=== PATIENT | male | born 1995 | race Caucasian/White ===

== ENCOUNTER 2022-02-06 13:06 | Emergency (ER) | payer OTHER, SELFPAY ==
[2022-02-06 13:27] VITALS: BP 133/76; PULSE 71; RESP 16; TEMP 36.9; O2SAT 99
--- NOTE | 2022-02-06 14:05 | ED.GENADULT ---
HPI - General Adult General Chief complaint: Neck Pain/Injury Stated complaint: shoulder/neck pain Time Seen by Provider: 02/06/22 14:05 Source: patient, RN notes reviewed and old records reviewed Mode of arrival: ambulatory Limitations: no limitations History of Present Illness HPI narrative: 26-year-old male presents to [facility] with complaints of pain to his right anterior and posterior shoulder extending to right neck after lifting a box today at work. Patient states that box weighed between 40-50 lbs. Patient reports that he has no tingling or numbness to his right arm or hand, has full ROM of his neck. Patient states that pain is at his anterior and posterior right shoulder with some radiation to neck now with movement.Patient has not taken any OTC medication for his discomfort or applied any ice. MD complaint: right anterior posteior shoulder with radiation to right neck Onset (ago): hour(s) (today at work) Severity scale (1-10): 4 Treatments prior to arrival: none Related Data Allergies Allergy/AdvReac Type Severity Reaction Status Date / Time No Known Allergies Allergy Verified 02/08/22 10:19 Review of Systems Review of Systems: CONSTITUTIONAL: Denies fever, chills, or sweats. EYES: Denies visual changes, redness, or discharge. ENT: Denies rhinorrhea, congestion, sore throat, or otalgia. CARDIOVASCULAR: Denies chest pain, palpitations, or edema. RESPIRATORY: Denies cough or dyspnea. GASTROINTESTINAL: Denies abdominal pain, nausea, vomiting, or diarrhea. GENITOURINARY: Denies dysuria or hematuria. SKIN: Denies rash or itching. MUSCULOSKELETAL: Denies back pain,positive for pain to right anterior and posterior shoulder radiating to neck, or myalgia. NEUROLOGIC: Denies headache, numbness, or weakness. PSYCHIATRIC:Positive for history of anxiety or depression. All systems reviewed & are unremarkable except as noted in HPI and below PMFSH Past Medical History Medical History (Updated 02/09/22 @ 14:26 by Brianna Clayton NP) Anxiety Depression Pilonidal cyst surgical intervention Family History Family History Mother Cervical cancer Grandparent Acute myocardial infarction Social History Social History (Updated 02/08/22 @ 10:24 by Smitha Spain) Social History: Single Smoking packs per day: 0.5 Smoking cigarettes per day: 10.0 Years smoked: 7 Smoking pack-years: 3.50 Smoking status: Current every day smoker Tobacco type: cigarettes Second hand tobacco smoke exposure: Yes Alcohol intake: never Substance use: never Substance use type: does not use Living arrangements: with family Occupation/Education: occupation 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 There is no relevant family history pertinent to the presenting complaint Exam Narrative: GENERAL: Well-appearing, well-nourished, and in no acute distress. HEAD: Normocephalic, atraumatic. EYES: PERRLA and EOMI. ENT: Nares clear, no rhinorrhea or epistaxis. Mucous membranes moist.TM's normal with good light reflex, throat pink with no lesions or swelling NECK: Supple.no lymphadenopathy CHEST: Clear to auscultation. No respiratory distress.SAO2 100% on room air HEART: Regular rate and rhythm. No murmur heard. Normal peripheral pulses. ABDOMEN: Soft, nontender, nondistended, normal active bowel sounds. EXTREMITIES: Normal range of motion. No edema.Patient is able to move right arm with full ROM but discomfort stated to anterior and posterior shoulder region with burning type of pain, reports radiation to right side of neck at times.strong pulses to right arm, nail beds paulino briskly, denies any tingling or numbness to right arm or hand
[2022-02-06 14:10] VITALS: BP 110/74; PULSE 102; RESP 16; TEMP 36.9; O2SAT 100
== END 2022-02-06 14:33 | disposition home or self-care (01) ==
PROVIDERS: Emergency Provider Registered Nurse
DX: S46.811A Strain of other muscles, fascia and tendons at shoulder and upper arm level, right arm, initial encounter (principal); M25.511 Pain in right shoulder; M54.2 Cervicalgia; Z87.891 Personal history of nicotine dependence; T14.90XA Injury, unspecified, initial encounter
CPT/HCPCS: 99213; G0463

== ENCOUNTER 2022-06-21 08:40 | Outpatient (CLI) | payer OTHER, SELFPAY ==
--- NOTE | ~2022-06-21 | US_ITS ---
EXAMINATION: US abdomen limited DATE: 06/21/2022 09:13 INDICATION: Epigastric abdominal pain TECHNIQUE: Multiple grayscale and Doppler ultrasound images of the abdomen were obtained. COMPARISON: None available FINDINGS: The head and body of the pancreas are normal. The pancreatic tail is obscured by bowel gas. The liver is normal with normal echogenicity and echotexture. No surface nodularity. Normal hepatope roel flow in the main portal vein. The gallbladder is normal with no abnormal wall thickening, pericho lecystic fluid or stones. The normal common bile duct measures 2 mm. There was no sonographic Siddiqui sign. IMPRESSION: 1. No sonographic correlate for the patient's symptoms. Reviewed, dictated and finalized at location B. SPORTATION SERVICES REPRESENTATIVE
== END 2022-06-21 08:41 | disposition home or self-care (01) ==
PROVIDERS: PCP Family Medicine; Visit Provider Physician Assistant
DX: R10.13 Epigastric pain (principal)
CPT/HCPCS: 76705

== ENCOUNTER 2022-07-06 08:00 | Outpatient (NON) | payer OTHER, SELFPAY | END 2022-07-06 08:01 | disposition home or self-care (01) | LOC: ANHLAB 07-07 07:29 | PROVIDERS: PCP Family Medicine; Visit Provider Internal Medicine Gastroenterology | DX: K29.50 Unspecified chronic gastritis without bleeding (principal) | CPT/HCPCS: 88305 ==

== ENCOUNTER 2022-07-06 11:21 | Day surgery (SDC) | payer OTHER, SELFPAY ==
[2022-07-06 12:51] VITALS: BP 126/66; PULSE 73; RESP 18; TEMP 37.1; O2SAT 99
[2022-07-06] MEDS: LACTATED RINGERS 1,000 ML 150 ML IV CONT (12:57)
--- NOTE | 2022-07-06 13:03 | WPDANESEPPF ---
Anes - Initial Pre Proc Eval Procedure: Operation Date: 07/06/22 14:00 Proposed Procedures p Esophagogastroduodenoscopy - Alfred Vazquez MD Date/Time: 07/06/22 13:03 Surgeon: Alfred Vazquez MD Pre Op Diagnosis: Epigastric Pain Patient Data Age: 26 Gender: M Height: 1.7 m Weight: 87.8 kg Last Vital Signs Temp 37.1 C 07/06/22 12:51 Pulse 73 07/06/22 12:51 Resp 18 07/06/22 12:51 BP 126/66 07/06/22 12:51 Pulse Ox 99 07/06/22 12:51 O2 Del Method Room Air 07/06/22 12:51 Allergies Allergy/AdvReac Type Severity Reaction Status Date / Time No Known Allergies Allergy Verified 07/06/22 12:49 Home Medications Medication Instructions Recorded Confirmed Type buspirone 5 mg tablet 5 mg PO BID PRN anxiety #60 tabs 07/05/22 07/06/22 Rx omeprazole 40 mg capsule,delayed 40 mg PO DAILY #30 caps 07/05/22 07/06/22 Rx release sertraline 25 mg tablet 25 mg PO DAILY #30 tabs 07/05/22 07/06/22 Rx Patient hx anesthesia problems: none Family hx anesthesia problems: none Results Review: All pre-operative results and documents have been reviewed as part of the pre-operative evaluation. [facility] Past Medical History Medical History Anxiety Depression Pilonidal cyst surgical intervention Family History Family History Mother Cervical cancer Grandparent Acute myocardial infarction Social History Social History Social History: Single Smoking packs per day: 0.5 Smoking cigarettes per day: 10.0 Years smoked: 7 Smoking pack-years: 3.50 Smoking status: Former smoker Tobacco type: cigarettes Second hand tobacco smoke exposure: Yes Smoking end date: 04/15/22 Alcohol intake: never Substance use: never Substance use type: does not use Living arrangements: with family Occupation/Education: occupation 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 Gender identity (if verbalized by the patient): Male Sexual Orientation (if Verbalized by the Patient): Straight or Heterosexual Spiritual care concerns: No Anes - Eval Final PreProcedure Day of Procedure 07/06/22 13:03 Patient weight: overweight Heart: regular rate and rhythm Lungs: clear to auscultation Airway: Mallampati scale class II Last oral intake: >/= 8 hours ASA classification: II Emergent: no Anesthetic plan: proceed Anesthesia type and monitoring: general GIVS and standard monitoring Results Review: All pre-operative results and documents have been reviewed as part of the pre-operative evaluation. Informed Consent: The patient's anesthetic plan and its attendant risks and benefits were discussed with the patient/family/POA. Questions were solicited and answers provided to the satisfaction of the patient/family/POA.
--- NOTE | 2022-07-06 13:42 | PM.HPGS ---
History of Present Illness History of Present Illness Consent: Risks, benefits, and alternatives have been discussed and questions answered. Patient agrees to proceed with procedure. Chief complaint: Epigastric Pain Narrative: Dwayne Ren is a 26 year old male here for first EGD, had epigastric pain and found to have positive h pylori breath test. RUQ US and cbc, cmp, amylase, lipase unremarkable. Sx have resolved after amoxicillin, clarithromycin, PPI triple therapy x 2 weeks. Still using ppi and doing well. Review of Systems Constitutional: Constitutional: Denies headache(s) and Denies weakness Eyes: Eyes: Denies blurry vision ENT: Reports Normal hearing present, Denies headache(s) and Denies neck pain Cardiovascular: Cardiovascular: Denies chest pain and Denies dyspnea Respiratory: Respiratory: Denies dyspnea Gastrointestinal: Gastrointestinal: Reports no additional gastrointestinal complaints Genitourinary: Genitourinary: Denies dysuria Musculoskeletal: Musculoskeletal: Denies neck pain Integumentary/Breasts: Skin/Breast: Denies dry skin Neurologic: Reports Normal hearing present, Denies headache(s) and Denies weakness Psychiatric: Psychiatric: Denies anxiety Endocrine: Endocrine: Denies change in body appearance Hematologic/Lymphatic: Hematologic/Lymphatic: Denies easy bleeding Allergic/Immunologic: Allergic/Immunologic: Denies urticaria PMFSH Past Medical History Medical History (Updated 07/06/22 @ 13:43 by Alfred Vazquez MD) Anxiety Depression Epigastric pain Pilonidal cyst surgical intervention Positive Helicobacter pylori test Family History Family History Mother Cervical cancer Grandparent Acute myocardial infarction Social History Social History Social History: Single Smoking packs per day: 0.5 Smoking cigarettes per day: 10.0 Years smoked: 7 Smoking pack-years: 3.50 Smoking status: Former smoker Tobacco type: cigarettes Second hand tobacco smoke exposure: Yes Smoking end date: 04/15/22 Alcohol intake: never Substance use: never Substance use type: does not use Living arrangements: with family Occupation/Education: occupation 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 Gender identity (if verbalized by the patient): Male Sexual Orientation (if Verbalized by the Patient): Straight or Heterosexual Spiritual care concerns: No Meds Home Medications and Allergies Home Medications Medication Instructions Recorded Confirmed Type buspirone 5 mg tablet 5 mg PO BID PRN anxiety #60 tabs 07/05/22 07/06/22 Rx omeprazole 40 mg capsule,delayed 40 mg PO DAILY #30 caps 07/05/22 07/06/22 Rx release sertraline 25 mg tablet 25 mg PO DAILY #30 tabs 07/05/22 07/06/22 Rx Allergies Allergy/AdvReac Type Severity Reaction Status Date / Time No Known Allergies Allergy Verified 07/06/22 12:49 Vital Signs Vital Signs - 24 hr 07/06/22 12:51 Temperature 98.7 F Pulse Rate 73 Respiratory Rate 18 Blood Pressure 126/66 Pulse Oximetry 99 Oxygen Delivery Room Air Exam Const: General: comfortable and no acute distress HENMT: Face/Nose/Sinus: Normal nares present Eyes: General: appearance normal, both eyes and all related structures Neck: Neck: no JVD Resp: Auscultation: clear to auscultation bilaterally Cardio: Rate: regular rate Rhythm: regular rhythm GI: Inspection: non-distended GI Palp: Yes Soft to palpation Skin: General skin exam: normal color Neuro: General: gait normal Speech: normal speech Extrem: General: normal to inspection Psych: Mental Status: mental status grossly normal Assessment and Plan Assessment and plan (1) Epigastric pain: Code(s): R10.13 - Epigastric pain Status: Acute Assessment and Plan: egd with bx (2) Positive Helicobacter pylori test:
[2022-07-06 14:00] VITALS: BP 101/63; PULSE 76; RESP 16; O2SAT 96
[2022-07-06 14:10] VITALS: BP 103/64; PULSE 63; RESP 16; O2SAT 100
--- NOTE | 2022-07-06 14:14 | WPDANESPN ---
Anes - Prog Note Post-Op Date/Time: 07/06/22 14:14 Cardiovascular status: normal Respiratory status: normal Airway patency: baseline Mental status: baseline Post-Op hydration status: normal Vital Signs: Last Vital Signs Temp 37.1 C 07/06/22 12:51 Pulse 76 07/06/22 14:00 Resp 16 07/06/22 14:00 BP 101/63 07/06/22 14:00 Pulse Ox 96 07/06/22 14:00 O2 Del Method Room Air 07/06/22 14:00 Pain Score (VAS): 0/10 I/O: Intake & Output 07/05/22 07/06/22 07/06/22 23:59 07:59 15:59 Intake Total 300 Balance 300 Patient Feedback: Patient satisfied with anesthetic care.
[2022-07-06 14:20] VITALS: BP 98/69; PULSE 78; RESP 16; O2SAT 99
== END 2022-07-06 14:45 | disposition home or self-care (01) ==
PROVIDERS: PCP Family Medicine; Visit Provider Internal Medicine Gastroenterology
PROC: 0DJ08ZZ Inspection of Upper Intestinal Tract, Via Natural or Artificial Opening Endoscopic (ICD-10-PCS; CPT 43235; principal; 2022-07-06 14:00)
DX: R10.13 Epigastric pain (principal)
CPT/HCPCS: 43239

== ENCOUNTER 2022-08-05 01:04 | Day surgery (SDC) | payer OTHER, SELFPAY ==
[2022-07-23 12:57] VITALS: BMI 30.2
--- NOTE | 2022-07-23 13:00 | PC.NURSE ---
Report to the Outpatient Waiting Room, entrance under the green pavilion located off [facility], at time 0730 on date 08/05/22. Planned Procedure Time: 0930. Time changes happen often and if your time is changed the preop area will call you the afternoon before. - You and your visitor will be asked to self-screen and do not enter if you have any COVID symptoms. - Only one visitor is requested with a max of two and NO children visitors are allowed at this time. - The patient visitor may be requested to leave or wait in car when not with patient due to distancing restrictions. - A mask is optional within the hospital at this time. Patients may have clear liquids (water, carbonated beverages, clear teas, apple juice) until 3 hours prior to surgery with a maximum of 20 ounces. - No food from midnight until time of surgery Take the following medications with a SIP of water the morning of surgery: SERTRALINE, BUSPIRONE IF NEEDED DO NOT STOP ANY OF YOUR OTHER PRESCRIPTION MEDICATIONS PRIOR TO SURGERY EXCEPT THE FOLLOWING Medications to discontinue per physician: N/A Date to take last dose: N/A Please no make-up, nail bulgarian, hairspray, perfume, deodorant, or body powder the day of surgery. No jewelry (including any body piercings) or valuables the day of surgery, leave them at home. Please take a shower or bath the night before, or the morning of, surgery with an antibacterial soap. Wear comfortable, loose fitting clothing. - Jewelry must be removed prior to entering the operating room. Rings and piercings that are not removed may be cut off. - The hospital will not accept responsibility for valuables. - Please leave all valuables, including medications, at home the day of surgery. If you are going home after surgery, a licensed wheat combine driver must drive you home. - NO public transportation without another adult if you receive anesthesia. - We recommend that an adult stay with you for 24 hours following discharge. - We also recommend that you do not drive, make important decision, drink alcoholic beverages, or take any drugs that were not prescribed by your health care provider for at least 24 hours after your discharge time. Follow any additional instructions given to you from your surgeon. If you or anyone in your household have experienced Covid symptoms in the past week, please notify your surgeon or the nurse liaison at the phone number below for possible testing. Telephone instructions given to PT - ALEX HYMAN and asked if any additional questions and then verbalized understanding. Patient advised to call surgeon office or pre surgery nurse liaison [phone] if any additional questions.
[2022-08-05] VITALS (11 sets, daily range): BP systolic 107–143; BP diastolic 62–89; PULSE 63–95; RESP 12–19; TEMP 36.3–36.7; O2SAT 96–100
[2022-08-05] MEDS: LACTATED RINGERS 1,000 ML 30 ML IV CONT ×2 (08:45→11:54)
--- NOTE | 2022-08-05 08:57 | WPDHPUPDATE1 ---
History and Physical Update Update Date/Time: 08/05/22 08:57 History and Physical has been reviewed, including an updated exam of the patient. There are NO changes in the patient's condition. Risks, benefits, and alternatives have been discussed and questions answered. Patient agrees to proceed with procedure.
--- NOTE | 2022-08-05 08:58 | W.PM.PROC2 ---
Procedure Note - Detailed Date of Procedure 08/05/22 Pre-op Diagnosis pilonidal disease Post-op Diagnosis Same Procedure Performed Excision pilonidal disease 14cm Surgeon José Miguel Benavides MD Anesthesia General Findings Extended from superior gluteal cleft with sinus tract to left of anus. No muscle involvement. Description of Procedure Preoperatively the risks, benefits, alternatives were discussed in extensive detail. I wanted them to be very realistic about the risks involved as well as expectations. They understand this can recur or have new areas. We may not be able to treat the entire condition. He understands risks of infection and open wounds. All questions were answered todayin great detail to their satisfaction today. Consent obtained. They would like proceed. Patient was taken to the operating room. Anesthesia provided by anesthesiology. Placed in a prone position and prepped and draped in a standard sterile fashion. Surgical time-out was taken. 1% lidocaine and 0.25% Marcaine with epinephrine was used anesthetize locally. I used a lacrimal probe to identify the sinus tract from superior gluteal cleft to left of anus. Fifteen blade used to excise around the area of concern this was completely removed. I copiously irrigated with saline solution. I closed in layers obliterating all space using 2-0 Vicryl followed by 3-0 Monocryl and 3-0 chromic. Dressings were placed. Patient was woken taken to the PACU without difficulty. All instrument sponge counts were correct at the end of the case. Estimated Blood Loss 15 Drains No Packing No Pathology Yes (Pilonidal disease) Complications No immediate complications Condition Stable Disposition PACU
[2022-08-05 09:11] LABS: Urine Cotinine POSITIVE
--- NOTE | 2022-08-05 09:15 | WPDANESEPPF ---
Anes - Initial Pre Proc Eval Procedure: Operation Date: 08/05/22 09:30 Proposed Procedures p Excision of Pilonidal Disease - José Miguel Benavides MD Date/Time: 08/05/22 09:15 Surgeon: José Miguel Benavides MD Pre Op Diagnosis: pilonidal disease Patient Data Age: 27 Gender: M Height: 1.7 m Weight: 87.55 kg Last Vital Signs Temp 36.7 C 08/05/22 08:45 Pulse 73 08/05/22 08:45 Resp 17 08/05/22 08:45 BP 122/69 08/05/22 08:45 Pulse Ox 98 08/05/22 08:45 O2 Del Method Room Air 08/05/22 08:45 Allergies Allergy/AdvReac Type Severity Reaction Status Date / Time No Known Allergies Allergy Verified 07/26/22 16:16 Home Medications Medication Instructions Recorded Confirmed Type buspirone 5 mg tablet 5 mg PO BID PRN anxiety #60 tabs 07/05/22 07/26/22 Rx omeprazole 40 mg capsule,delayed 40 mg PO DAILY #30 caps 07/05/22 07/26/22 Rx release sertraline 50 mg tablet 50 mg PO DAILY #30 tabs 07/26/22 07/26/22 Rx Laboratory Tests 08/05/22 08:48 Cotinine Positive Patient hx anesthesia problems: none Family hx anesthesia problems: none Results Review: All pre-operative results and documents have been reviewed as part of the pre-operative evaluation. [facility] Past Medical History Medical History Anxiety Depression Epigastric pain Pilonidal cyst surgical intervention Positive Helicobacter pylori test Family History Family History Mother Cervical cancer Grandparent Acute myocardial infarction Social History Social History Social History: Single Smoking packs per day: 0.5 Smoking cigarettes per day: 10.0 Years smoked: 7 Smoking pack-years: 3.50 Smoking status: Former smoker Tobacco type: cigarettes Second hand tobacco smoke exposure: Yes Smoking end date: 04/15/22 Alcohol intake: never Substance use: current Substance use type: marijuana Living arrangements: with family Occupation/Education: occupation 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 Gender identity (if verbalized by the patient): Male Sexual Orientation (if Verbalized by the Patient): Straight or Heterosexual Spiritual care concerns: No Anes - Eval Final PreProcedure Day of Procedure 08/05/22 09:15 Patient weight: obese Heart: regular rate and rhythm Lungs: clear to auscultation Airway: Mallampati scale class II Neurological: alert and oriented Last oral intake: >/= 8 hours ASA classification: III Emergent: no Anesthetic plan: proceed Anesthesia type and monitoring: general ETT and standard monitoring Results Review: All pre-operative results and documents have been reviewed as part of the pre-operative evaluation. Informed Consent: The patient's anesthetic plan and its attendant risks and benefits were discussed with the patient/family/POA. Questions were solicited and answers provided to the satisfaction of the patient/family/POA.
[2022-08-05] MEDS: ceFAZolin 2 GM/D5W 50 ML 2 GM/50 ML BAG IVPB (09:19)
[2022-08-05] MEDS: BUPivacaine HCL 0.25% PF 30 ML VIAL INFILTRATE (09:50)
[2022-08-05] MEDS: LIDO 1%/EPINEPHRINE 1:100,000 20 ML VIAL INFILTRATE (09:51)
[2022-08-05] MEDS: oxyCODONE HCL (*CRX) 5 MG TAB IR PO (11:47)
[2022-08-05] MEDS: fentaNYL CITRATE INJ (*CRX) 100 MCG/2 ML VIAL 25 MCG IV PUSH (11:52)
== END 2022-08-05 12:28 | disposition home or self-care (01) ==
PROVIDERS: PCP Family Medicine; Visit Provider Surgery Plastic and Reconstructive Surgery
PROC: (CPT 11771; principal; 2022-08-05 09:30)
DX: L05.91 Pilonidal cyst without abscess (principal); F41.9 Anxiety disorder, unspecified; F32.A Depression, unspecified; Z79.899 Other long term (current) drug therapy; Z87.891 Personal history of nicotine dependence; F12.90 Cannabis use, unspecified, uncomplicated; E66.9 Obesity, unspecified; Z68.30 Body mass index [BMI] 30.0-30.9, adult
CPT/HCPCS: 11771; 80307; 88305; A9270; J0330; J0690; J1100; J2250; J2405; J2704; J3010; J7120